=== PATIENT | male | born 1995 | race Caucasian/White ===

== ENCOUNTER 2018-07-14 11:50 | Emergency (ER) | payer BC ==
[2018-07-14] MEDS ORDERED: NS 0.9% 1000 ML* 1,000 ML IV ONE (12:18)
[2018-07-14] MEDS ORDERED: DiMENhydriNATE IV* 50 MG/ML VIAL IV PUSH ONE (12:18)
--- NOTE | 2018-07-14 12:21 | ED ---
Dizziness - HPI Summary HPI Summary: This patient is a 23 year old M presenting to [facility] accompanied by his parents with a chief complaint of dizziness that began 3 days ago. Pt states when he walks he feels dizzy and sometimes needs to grab ahold of something for balance. He states there is no dizziness at rest. The patient rates the pain 1/ 10 in severity. Patient denies sinus pressure, earing ringing, ear pain, sinus discharge, ARREAGA, numbness, weakness, trouble speaking, fevers, tremors, chills, cold sx, and head injury. Pt has recently had a CTA and MRI that were negative. Fmhx of AVM, first cousin grandfather. - History Of Current Complaint Chief Complaint: EDHeadache Stated Complaint: DIZZY Time Seen by Provider: 07/14/18 12:09 Hx Obtained From: Patient Onset/Duration: Still Present Timing: Days Severity Initially: Mild Severity Currently: Mild Character: Dizzy Aggravating Factor(s): Other - walking Alleviating Factor(s): Rest Associated Signs And Symptoms: Positive: Negative - sinus pressure, earing ringing, ear pain, sinus discharge, ARREAGA, numbness, weakness, trouble speaking, fevers, tremors, chills, cold sx, and head injury. - Allergies/Home Medications Allergies/Adverse Reactions: Allergies Allergy/AdvReac Type Severity Reaction Status Date / Time No Known Allergies Allergy Verified 07/14/18 11:55 PMH/Surg Hx/FS Hx/Imm Hx Cardiovascular History: Denies: Hx Hypertension, Hx Myocardial Infarction Respiratory History: Denies: Hx Chronic Obstructive Pulmonary Disease (COPD), Hx Cystic Fibrosis GI History: Denies: Hx Cirrhosis, Hx Crohn's Disease, Hx Gall Bladder Disease, Hx Hiatal Hernia History: Denies: Hx Chronic Renal Failure Sensory History: Reports: Hx Contacts or Glasses Opthamlomology History: Reports: Hx Contacts or Glasses Neurological History: Reports: Hx Headaches Denies: Hx Developmental Delay Psychiatric History: Denies: Hx Panic Disorder Infectious Disease History: No Infectious Disease History: Denies: Traveled Outside the [place] in Last 30 Days - Family History Known Family History: Positive: Other - AVM, Negative: Respiratory Disease, Seizure Disorder - Social History Occupation: Student Lives: Dormitory/Roommates Alcohol Use: uses ETOH Substance Use Type: Reports: Other Substance Use Comment - Amount & Last Used: uses electronic ciggarette Smoking Status (MU): Current Every Day Smoker Type: eCigpierce Review of Systems Constitutional: Negative - cold sx Negative: Fever, Chills ENT: Negative - sinus pressure, earing ringing, ear pain, sinus discharge, Musculoskeletal: Negative - head injury Neurological: Negative - tremors , Other - dizziness Negative: Headache, Weakness, Numbness, Slurred Speech All Other Systems Reviewed And Are Negative: Yes Physical Exam - Summary Physical Exam Summary: Appearance: Well appearing, no pain distress Skin: warm, dry, reflects adequate perfusion Head/face: normal Eyes: EOMI, ANH ENT: mucous membranes moist. Serous effusions in both ears Neck: supple, non-tender Respiratory: CTA, breath sounds present Cardiovascular: RRR, pulses symmetrical Abdomen: non-tender, soft Bowel Sounds: present Musculoskeletal: normal, strength/ROM intact Neuro: normal, sensory motor intact, A&Ox3 Triage Information Reviewed: Yes Vital Signs On Initial Exam: Initial Vitals Temp Pulse Resp BP Pulse Ox 97.6 F 81 18 132/88 97 07/14/18 11:52 07/14/18 11:52 07/14/18 11:52 07/14/18 11:52 07/14/18 11:52 Vital Signs Reviewed: Yes Diagnostics - Vital Signs Vital Signs Temp Pulse Resp BP Pulse Ox 07/14/18 12:03 81 129/85 98 07/14/18 12:02 79 98 07/14/18 11:52 97.6 F 81 18 132/88 97 - Laboratory Lab Statement: Any lab studies that have been ordered have been reviewed, and results considered in the medical decision making process. - CT CT Brain CT Interpretation Completed By: Radiologist Summary of CT Findings: NO ACUTE INTRACRANIAL PATHOLOGY. ED physician has reviewed this radiology report. CTA Head CT Interpretation Completed By: Radiologist Summary of CT Findings: NO ANEURYSM, VASCULAR MALFORMATION, OCCLUSION, OR STENOSIS OF THE VISUALIZED INTRACRANIAL. CIRCULATION. ED physician has reviewed this radiology report. Re-Evaluation - Re-Evaluation First Eval Re-Evaluation Time: 13:24 Comment: The patient is feeling better but is fatigued. He states the headache has resolved. When he attempted to walk in the ED he stated he felt " lightheaded and like he was about to get dizzy." Second Eval Re-Evaluation Time: 14:42 Change: Improved Comment: The patient is feeling better, I discussed all test results with him and his parents. Dizzy Course/Dx - Course Course Of Treatment: Young patient with family history for AVM of the brain presents with congestion, serous effusions in both ears and vertigo. Some symptoms with Hallpike to the left. Head CT with CTA of the brain shows no AVM or aneurysm. He was hydrated here and treated with Dramamine IV with significant improvement. He will be continued on outpatient meclizine and decongestant. Blood sugar is normal. We will start outpatient steroids as well. - Diagnoses Differential Diagnosis/HQI/PQRI: Other - AVM, peripheral vertigo, labyrinthitis , vestibular neuronitis, intracranial hemorrhage Provider Diagnoses: Vestibular neuritis Discharge - Sign-Out/Discharge Documenting (check all that apply): Patient Departure - Discharge Plan Condition: Improved Disposition: HOME Prescriptions: Dexamethasone TAB* [Decadron TAB*] 8 mg PO DAILY #8 tab Guaifenesin/Pseudo 600/60(NF) [Mucinex D 600/60 (NF)] 1 tab PO BID #12 tab Meclizine HCl [Motion Sickness II] 25 mg PO TID PRN #30 tablet PRN Reason: Dizziness Patient Education Materials: Vertigo (ED), Serous Otitis Media (ED) Referrals: [facility] [Primary Care Provider] - Additional Instructions: Call today to schedule prompt follow-up with [facility]. Do not drive. Gabapentin can be taken for sleep. Return with worse headaches, vomiting, visual changes, uncontrolled dizziness, worse or other concerns as discussed. - Billing Disposition and Condition Condition: IMPROVED Disposition: Home - Attestation Statements Document Initiated by Dinah: Yes Documenting Scribe: Jose Brown Provider For Whom Dinah is Documenting (Include Credential): Garfield Chapin MD Scribe Attestation: Jose Johansen scribed for Garfield Chapin MD on 07/14/18 at 1952. Scribe Documentation Reviewed: Yes Provider Attestation: The documentation as recorded by the Jose hilton accurately reflects the service I personally performed and the decisions made by me, Garfield Chapin MD Status of Scribe Document: Viewed
[2018-07-14] MEDS ORDERED: Iodixanol* (CONTRAST) 320 MG/ML 100 ML SDV IV ONE (13:47)
[2018-07-14 15:08] VITALS: BP 143/85
== END 2018-07-14 15:08 | disposition home or self-care (01) ==
LOC: ED 11:50
DX: H93.3X9 Disorders of unspecified acoustic nerve (principal); F17.290 Nicotine dependence, other tobacco product, uncomplicated
CPT/HCPCS: 70450; 70496; 96361; 96374; 99283; J1240; Q9967

== ENCOUNTER 2019-04-05 20:54 | Emergency (ER) | payer BC ==
[2019-04-05] MEDS ORDERED: NS 0.9% 1000 ML** 2,000 ML IV ONE (21:34)
[2019-04-05] MEDS ORDERED: Ondansetron INJ* 2 MG/ML VIAL IV ONE (21:34)
--- NOTE | 2019-04-05 21:39 | ED ---
Dizziness - HPI Summary HPI Summary: Pt is a 23 y/o M presenting to the ED with a chief complaint of dizziness initially onset today. He states he was drinking this past weekend, and today he was unable to get out of bed. When he does stand, he states that his feet shake, he is weak, and incredibly off balance. He also reports nausea/vomiting, and he could not hold any food or water down. - History Of Current Complaint Chief Complaint: EDDizziness Stated Complaint: DIZZINESS/BOTH HANDS TINGLING PER PT Time Seen by Provider: 04/05/19 21:27 Hx Obtained From: Patient Onset/Duration: Still Present, Suddenly Timing: Hours Severity Initially: Moderate Severity Currently: Moderate Character: Weak, Dizzy Aggravating Factor(s): Supine To Erect Alleviating Factor(s): Rest Associated Signs And Symptoms: Positive: Nausea, Vomiting, Unsteady Gait, Decreased Oral Intake, Other: - recent etoh use - Allergies/Home Medications Allergies/Adverse Reactions: Allergies Allergy/AdvReac Type Severity Reaction Status Date / Time No Known Allergies Allergy Verified 04/05/19 21:08 PMH/Surg Hx/FS Hx/Imm Hx Previously Healthy: Yes Endocrine/Hematology History: Denies: Hx Diabetes Cardiovascular History: Denies: Hx Hypertension, Hx Myocardial Infarction Respiratory History: Denies: Hx Chronic Obstructive Pulmonary Disease (COPD), Hx Cystic Fibrosis GI History: Denies: Hx Cirrhosis, Hx Crohn's Disease, Hx Gall Bladder Disease, Hx Hiatal Hernia History: Denies: Hx Chronic Renal Failure, Hx Renal Disease Sensory History: Reports: Hx Contacts or Glasses Opthamlomology History: Reports: Hx Contacts or Glasses Neurological History: Reports: Hx Headaches Denies: Hx Developmental Delay Psychiatric History: Denies: Hx Panic Disorder - Surgical History Surgery Procedure, Year, and Place: T&A Infectious Disease History: No Infectious Disease History: Denies: Traveled Outside the [place] in Last 30 Days - Family History Known Family History: Positive: Other - AVM Negative: Respiratory Disease, Seizure Disorder - Social History Occupation: Student Alcohol Use: uses ETOH Hx Substance Use: Yes Substance Use Type: Reports: Other Substance Use Comment - Amount & Last Used: uses electronic ciggarette Hx Tobacco Use: Yes Smoking Status (MU): Current Every Day Smoker Type: [place] Review of Systems Positive: Other - decreased oral intake Positive: Vomiting, Nausea Positive: Other - unsteady gait Neurological: Other - dizziness All Other Systems Reviewed And Are Negative: Yes Physical Exam - Summary Physical Exam Summary: Appearance: Well-appearing, Well-nourished, lying in bed comfortably Skin: Warm, dry, no obvious rash Eyes: sclera anicteric, no conjunctival pallor ENT: mucous membranes moist, pharynx appears normal Neck: Supple, nontender Respiratory: Clear to auscultation, no signs of respiratory distress Cardiovascular: Normal S1, S2. No murmurs. Normal distal pulses in tibial and radial bilaterally. Abdomen: Soft, nontender, normal active bowel sounds present Musculoskeletal: Normal, Strength/ROM Intact, Motor function in all 4 extremities is normal and symmetric. There is no rigidity or tremor noted. Neurological: A&Ox3, awake and alert, mentation is normal, speech is fluent and appropriate, Level of consciousness nml. The patient is alert and oriented. Cranial nerves are grossly intact. Gaze is conjugate and without nystagmus. Peripheral vision is intact to confrontation. There are no gross sensory abnormalities to light touch. There is no truncal or fine motor ataxia. Psychiatric: affect is normal, does not appear anxious or depressed Triage Information Reviewed: Yes Vital Signs On Initial Exam: Initial Vitals Temp Pulse Resp BP Pulse Ox 97.4 F 88 20 147/87 99 04/05/19 21:07 04/05/19 21:07 04/05/19 21:07 04/05/19 21:07 04/05/19 21:07 Vital Signs Reviewed: Yes Diagnostics - Vital Signs Vital Signs Temp Pulse Resp BP Pulse Ox 04/05/19 21:07 97.4 F 88 20 147/87 99 - Laboratory Result Diagrams: 04/05/19 22:12 04/05/19 22:12 Lab Statement: Any lab studies that have been ordered have been reviewed, and results considered in the medical decision making process. Re-Evaluation - Re-Evaluation 1st re-eval Re-Evaluation Time: 00:00 Change: Unchanged Comment: Pt ambulated, feels somewhat better. He is still slightly dizzy. 2nd re-eval Re-Evaluation Time: 01:15 Change: Improved Comment: Pt's dizziness is almost completely gone, he feels stable for discharge. Dizzy Course/Dx - Course Course Of Treatment: Pt is a 23 y/o M presenting to the ED with a chief complaint of dizziness initially onset today. He states he was drinking this past weekend, and today he was unable to get out of bed. When he does stand, he states that his feet shake, he is weak, and incredibly off balance. He also reports nausea/vomiting, and he could not hold any food or water down. Pt's physical exam is normal. In the ED course, pt was given 3L fluids IV, 8mg Zofran IV, as well as 1mg Ativan IV. He will be sent home with dx of dizziness and alcohol abuse. I advised the pt to cut back on his drinking d/t his liver functions being somewhat abnormal. He is stable and agreeable with this plan. - Diagnoses Provider Diagnoses: Dizziness, Alcohol abuse Discharge ED - Sign-Out/Discharge Documenting (check all that apply): Patient Departure Patient Received Moderate/Deep Sedation with Procedure: No - Discharge Plan Condition: Improved Disposition: HOME Patient Education Materials: Abuse of Alcohol (ED), Dizziness (ED) Referrals: [facility], [[facility], [facility], OTHER] - Additional Instructions: Your liver function tests were abnormal tonight, likely due to excess alcohol intake. I would recommend cutting back on this before it permanently damages your liver. - Billing Disposition and Condition Condition: IMPROVED Disposition: Home - Attestation Statements Document Initiated by Dinah: Yes Documenting Scribe: Carolee Austin Provider For Whom Dinah is Documenting (Include Credential): Gonzalez Velez MD. Scribe Attestation: ICarolee, scribed for Gonzalez Velez MD. on 04/09/19 at 1853. Scribe Documentation Reviewed: Yes Provider Attestation: The documentation as recorded by the Carolee hilton accurately reflects the service I personally performed and the decisions made by me, Gonzalez Velez MD. Status of Scribe Document: Viewed
[2019-04-05 22:19] LABS: ABS Eosinophils 0.2 10^3/ul (0-0.6); ABS Lymphocytes 0.9 10^3/ul (1.0-4.8); ABS Monocytes 0.6 10^3/ul (0-0.8); ABS Neutrophils 4.8 10^3/ul (1.5-7.7); Eosinophil % 3.2 %; Hematocrit 44 % (42-52); Hemoglobin 15.5 g/dL (14.0-18.0); Lymphocyte % 13.5 %; Mean Corpuscular HGB Conc 35 g/dL (31-36); Mean Corpuscular Hemoglobin 31 pg (27-31); Mean Corpuscular Volume 89 fL (80-94); Mean Platelet Volume 7.2 fL (7.4-10.4); Platelet Count 315 10^3/uL (150-450); Red Blood Count 4.94 10^6 /uL (4.18-5.48); Red Cell Distribution Width 13 % (10-15); White Blood Count 6.5 10^3/uL (3.5-10.8)
[2019-04-05 22:35] LABS: Albumin/Globulin Ratio 1.5 (1-3); BUN/Creatinine Ratio 12.7 (8-20); EGFR African American 149.8 (>60); EGFR Non-African American 123.8 (>60); Globulin 2.6 g/dL (2-4); Magnesium 1.9 mg/dL (1.9-2.7); Potassium 3.6 mmol/L (3.5-5.0); Total Bilirubin 1.6 mg/dL (0.2-1.0); Total Protein 6.6 g/dL (6.4-8.9)
[2019-04-06] MEDS ORDERED: NS 0.9% 1000 ML** 1,000 ML IV ONE (00:11)
[2019-04-06] MEDS ORDERED: Lorazepam PYXIS KEY PRN (00:21)
[2019-04-06] MEDS ORDERED: LORazepam INJ* 2 MG/ML 1 ML VIAL IV PUSH ONE (00:21)
[2019-04-06] MEDS ORDERED: Lorazepam PYXIS KEY ONE (00:24)
[2019-04-06 01:26] VITALS: BP 124/64
== END 2019-04-06 01:26 | disposition home or self-care (01) ==
LOC: ED 20:54
DX: R42 Dizziness and giddiness (principal); F10.10 Alcohol abuse, uncomplicated; F17.290 Nicotine dependence, other tobacco product, uncomplicated
CPT/HCPCS: 36415; 80053; 83735; 85025; 96361; 96374; 96375; 99283; J2060; J2405

== ENCOUNTER 2019-04-07 18:43 | Emergency (ER) | payer BC ==
[2019-04-07 20:10] LABS: ABS Eosinophils 0.2 10^3/ul (0-0.6); ABS Lymphocytes 1.6 10^3/ul (1.0-4.8); ABS Monocytes 0.8 10^3/ul (0-0.8); ABS Neutrophils 3.9 10^3/ul (1.5-7.7); Hematocrit 49 % (42-52); Hemoglobin 17.4 g/dL (14.0-18.0); Lymphocyte % 24.6 %; Mean Corpuscular HGB Conc 35 g/dL (31-36); Mean Corpuscular Hemoglobin 32 pg (27-31); Mean Corpuscular Volume 90 fL (80-94); Mean Platelet Volume 7.8 fL (7.4-10.4); Nucleated Red Blood Cells % 0.1; Platelet Count 327 10^3/uL (150-450); Red Blood Count 5.49 10^6 /uL (4.18-5.48); Red Cell Distribution Width 13 % (10-15); White Blood Count 6.5 10^3/uL (3.5-10.8)
[2019-04-07 20:14] LABS: ALT 118 U/L (7-52); AST 68 U/L (13-39); Albumin 4.7 g/dL (3.2-5.2); Albumin/Globulin Ratio 1.7 (1-3); Alkaline Phosphatase 110 U/L (34-104); Anion Gap 8 mmol/L (2-11); BUN/Creatinine Ratio 8.9 (8-20); Blood Urea Nitrogen 8 mg/dL (6-24); C Reactive Protein < 1.00 mg/L (<8.01); CO2 Carbon Dioxide 25 mmol/L (22-32); Calcium 9.8 mg/dL (8.6-10.3); Chloride 102 mmol/L (101-111); EGFR African American 128.9 (>60); EGFR Non-African American 106.5 (>60); Globulin 2.8 g/dL (2-4); Glucose 101 mg/dL (70-100); Potassium 4.1 mmol/L (3.5-5.0); Sodium 135 mmol/L (135-145); Total Protein 7.5 g/dL (6.4-8.9)
[2019-04-07] MEDS ORDERED: Ondansetron INJ* 2 MG/ML VIAL IV ONE ×2 (21:29→21:39)
[2019-04-07] MEDS ORDERED: NS 0.9% 1000 ML** 2,000 ML IV ONE (21:29)
[2019-04-07] MEDS ORDERED: LORazepam INJ* 2 MG/ML 1 ML VIAL IV ONE (21:36)
[2019-04-07] MEDS ORDERED: Lorazepam PYXIS KEY PRN (21:36)
--- NOTE | 2019-04-07 21:40 | ED ---
Dizziness - HPI Summary HPI Summary: Patient complains of lightheadedness and dizziness with walking, worse with eye movement, N/V, possible dehydration 3 days. Seen here 2 days ago for same, felt better after fluids, Ativan and Zofran. Patient admits to excessive alcohol prior to prior visit. Denies recent EtOH since. Denies recreational drug use. Patient also claims anxiety. Denies fever, cough, sore throat, CP, SOB, N/V/D, abdominal pain, change in urine, change in BM. Medical history is none. - History Of Current Complaint Chief Complaint: EDAbdPain Stated Complaint: CANT HOLD DOWN FOOD PER PT Time Seen by Provider: 04/07/19 21:20 Hx Obtained From: Patient Onset/Duration: Still Present Timing: Intermittent Episode Lasting Severity Initially: Moderate Severity Currently: Moderate Character: Room Spinning, Lightheaded Aggravating Factor(s): Exertion Alleviating Factor(s): Rest, Lying Down Associated Signs And Symptoms: Positive: Nausea, Vomiting - Risk Factors Cardiac Risk Factors: Negative - Allergies/Home Medications Allergies/Adverse Reactions: Allergies Allergy/AdvReac Type Severity Reaction Status Date / Time No Known Allergies Allergy Verified 04/05/19 21:08 PMH/Surg Hx/FS Hx/Imm Hx Endocrine/Hematology History: Denies: Hx Diabetes Cardiovascular History: Denies: Hx Hypertension, Hx Myocardial Infarction Respiratory History: Denies: Hx Chronic Obstructive Pulmonary Disease (COPD), Hx Cystic Fibrosis GI History: Denies: Hx Cirrhosis, Hx Crohn's Disease, Hx Gall Bladder Disease, Hx Hiatal Hernia History: Denies: Hx Chronic Renal Failure, Hx Renal Disease Sensory History: Reports: Hx Contacts or Glasses Opthamlomology History: Reports: Hx Contacts or Glasses Neurological History: Reports: Hx Headaches Denies: Hx Developmental Delay Psychiatric History: Denies: Hx Panic Disorder - Surgical History Surgery Procedure, Year, and Place: T&A Infectious Disease History: No Infectious Disease History: Denies: Traveled Outside the [place] in Last 30 Days - Family History Known Family History: Positive: Other - AVM Negative: Respiratory Disease, Seizure Disorder - Social History Alcohol Use: uses ETOH Hx Substance Use: Yes Substance Use Type: Reports: Other Substance Use Comment - Amount & Last Used: uses electronic ciggarette Hx Tobacco Use: Yes Smoking Status (MU): Current Every Day Smoker Type: eCigarettes Review of Systems Constitutional: Negative Eyes: Negative ENT: Negative Cardiovascular: Negative Respiratory: Negative Positive: Vomiting, Nausea Genitourinary: Negative Musculoskeletal: Negative Skin: Negative Neurological: Negative Positive: Anxious All Other Systems Reviewed And Are Negative: Yes Physical Exam Triage Information Reviewed: Yes Vital Signs On Initial Exam: Initial Vitals Temp Pulse Resp BP Pulse Ox 98.5 F 95 18 144/88 96 04/07/19 18:45 04/07/19 18:45 04/07/19 18:45 04/07/19 18:45 04/07/19 18:45 Vital Signs Reviewed: Yes Appearance: Positive: Well-Appearing Skin: Positive: Warm Head/Face: Positive: Normal Head/Face Inspection Eyes: Positive: Normal Neck: Positive: Supple Respiratory/Lung Sounds: Positive: Clear to Auscultation Cardiovascular: Positive: Normal Abdomen Description: Positive: Nontender Musculoskeletal: Positive: Normal Neurological: Positive: Normal Psychiatric: Positive: Normal AVPU Assessment: Alert - [place] Coma Scale Best Eye Response: 4 - Spontaneous Best Motor Response: 6 - Obeys Commands Best Verbal Response: 5 - Oriented Coma Scale Total: 15 Diagnostics - Vital Signs Vital Signs Temp Pulse Resp BP Pulse Ox 04/07/19 20:49 98.4 F 81 18 128/80 97 04/07/19 18:45 98.5 F 95 18 144/88 96 - Laboratory Lab Results: Lab Results 04/07/19 04/07/19 04/07/19 Range/Units 19:46 19:46 19:46 WBC 6.5 (3.5-10.8) 10^3/uL RBC 5.49 H (4.18-5.48) 10^6 /uL Hgb 17.4 (14.0-18.0) g/dL Hct 49 (42-52) % MCV 90 (80-94) fL MCH 32 H (27-31) pg MCHC 35 (31-36) g/dL RDW 13 (10-15) % Plt Count 327 (150-450) 10^3/uL MPV 7.8 (7.4-10.4) fL Neut % (Auto) 60.0 % Lymph % (Auto) 24.6 % [place] % (Auto) 11.7 % Eos % (Auto) 3.0 % Baso % (Auto) 0.7 % Absolute Neuts (auto) 3.9 (1.5-7.7) 10^3/ul Absolute Lymphs (auto) 1.6 (1.0-4.8) 10^3/ul Absolute Monos (auto) 0.8 (0-0.8) 10^3/ul Absolute Eos (auto) 0.2 (0-0.6) 10^3/ul Absolute Basos (auto) 0.0 (0-0.2) 10^3/ul Absolute Nucleated RBC 0.0 10^3/ul Nucleated RBC % 0.1 Sodium 135 (135-145) mmol/L Potassium 4.1 (3.5-5.0) mmol/L Chloride 102 (101-111) mmol/L Carbon Dioxide 25 (22-32) mmol/L Anion Gap 8 (2-11) mmol/L BUN 8 (6-24) mg/dL Creatinine 0.90 (0.67-1.17) mg/dL Est GFR ( Amer) 128.9 (>60) Est GFR (Non-Af Amer) 106.5 (>60) BUN/Creatinine Ratio 8.9 (8-20) Glucose 101 H (70-100) mg/dL Lactic Acid 0.8 (0.5-2.0) mmol/L Calcium 9.8 (8.6-10.3) mg/dL Total Bilirubin 1.00 (0.2-1.0) mg/dL AST 68 H (13-39) U/L ALT 118 H (7-52) U/L Alkaline Phosphatase 110 H (34-104) U/L C-Reactive Protein < 1.00 (<8.01) mg/L Total Protein 7.5 (6.4-8.9) g/dL Albumin 4.7 (3.2-5.2) g/dL Globulin 2.8 (2-4) g/dL Albumin/Globulin Ratio 1.7 (1-3) Lipase 21 (11.0-82.0) U/L Serum Alcohol Pending Result Diagrams: 04/07/19 19:46 04/07/19 19:46 Lab Statement: Any lab studies that have been ordered have been reviewed, and results considered in the medical decision making process. Dizzy Course/Dx - Course Course Of Treatment: Patient complains of lightheadedness and dizziness with walking, worse with eye movement, N/V, possible dehydration 3 days. Seen here 2 days ago for same, felt better after fluids, Ativan and Zofran. Patient admits to excessive alcohol prior to prior visit. Denies recent EtOH since. Denies recreational drug use. Patient also claims anxiety. Denies fever, cough , sore throat, CP, SOB, N/V/D, abdominal pain, change in urine, change in BM. Medical history is none. Vital signs within normal limits. LFTs elevated, however other values are elevated, likely secondary to concentration from dehydration. Patient felt better after 2 L normal saline, Ativan and Zofran. - Diagnoses Provider Diagnoses: Dizziness, Nausea & vomiting, Anxiety Discharge ED - Sign-Out/Discharge Documenting (check all that apply): Patient Departure Patient Received Moderate/Deep Sedation with Procedure: No - Discharge Plan Condition: Stable Disposition: HOME Prescriptions: LORazepam [Ativan] 0.5 mg PO BID PRN 2 Days #4 tablet MDD 2 tabs PRN Reason: Anxiety Meclizine HCl [Motion Sickness II] 25 mg PO TID 5 Days #15 tablet Patient Education Materials: Acute Nausea and Vomiting (ED), Dizziness (ED), Anxiety (ED) Referrals: No Primary Care Phys,NOPCP [Primary Care Provider] - Additional Instructions: Take meclizine as directed for nausea and dizziness. Drink plenty of fluids to maintain hydration. Return to the ED for any new or worsening symptoms. - Billing Disposition and Condition Condition: STABLE Disposition: Home
[2019-04-07 22:11] LABS: Alcohol < 10 mg/dL (<10)
[2019-04-07 22:58] LABS: Hepatitis B Surface Antigen Negative (Negative)
[2019-04-07 23:15] LABS: Urine Appearance Clear; Urine Bilirubin Negative (Negative); Urine Blood Negative (Negative); Urine Color Amber; Urine Glucose Negative (Negative); Urine Ketones Trace (Negative); Urine Nitrite Negative (Negative); Urine Protein Negative (Negative); Urine Specific Gravity 1.021 (1.010-1.030); Urine Urobilinogen Negative (Negative)
[2019-04-07 23:16] LABS: Hepatitis C Antibody Negative (Negative)
[2019-04-08 00:16] VITALS: BP 122/66
== END 2019-04-08 00:14 | disposition home or self-care (01) ==
LOC: ED 18:43
DX: R42 Dizziness and giddiness (principal); R11.2 Nausea with vomiting, unspecified; F41.9 Anxiety disorder, unspecified; F17.290 Nicotine dependence, other tobacco product, uncomplicated; Z79.899 Other long term (current) drug therapy
CPT/HCPCS: 36415; 80053; 80074; 80320; 81003; 83605; 83690; 85025; 86140; 96361; 96374; 96375; 96376; 99282; G0480; J2060; J2405